=== PATIENT | female | born 1965 | race Caucasian/White ===

== ENCOUNTER 2020-05-23 18:31 | Emergency (ER) | payer SELFPAY ==
[~2020-05-23] VITALS: Ht 157.5 cm; Wt 57.5 kg
[~2020-05-23 18:31] MED LIST: ASPI-496 PO; IBUP200T49 PO
--- NOTE | 2020-05-23 19:41 | NUR ---
ERP TO BEDSIDE.
--- NOTE | 2020-05-23 20:02 | NUR ---
PT LEFT IN TRENDENLENBERG POSITION WITH BEDRAILS UPX2 AFTER ERP ADMINISTERED LIDOCAINE VIA NASAL SWAB.
[2020-05-23] MEDS ORDERED: CARBAMIDE PEROXIDE EAR DROPS 6.5%, 15ML RIGHT EAR ONE (20:30)
[2020-05-23] MEDS ORDERED: CARBAMIDE PEROXIDE EAR DROPS 6.5%, 15ML ONE (20:34)
--- NOTE | 2020-05-23 20:48 | NUR ---
PT STATES SIGNIFICANT RELIEF FROM PAULA. THIS RN BACK TO BEDSIDE TO IRRIGATE EAR. APPROX 1MM SOLID PEBBLE OF WAX REMOVED FROM RIGHT EAR. ERP BACK TO BEDSIDE TO EVALUATE.
[2020-05-23 21:10] VITALS: BP 145/90
== END 2020-05-23 21:12 | disposition home or self-care (01) ==
LOC: ED 21:06
DX: G44.039 Episodic paroxysmal hemicrania, not intractable (principal); H60.501 Unspecified acute noninfective otitis externa, right ear; F17.210 Nicotine dependence, cigarettes, uncomplicated; I10 Essential (primary) hypertension; I25.2 Old myocardial infarction; G89.29 Other chronic pain
CPT/HCPCS: 99283; 99406